=== PATIENT | male | born 1955 | race Caucasian/White ===

== ENCOUNTER → 2024-06-21 07:19 | Day surgery (SDC) | payer MEDICARE, BC, SELFPAY ==
[2024-06-21 08:28] LABS: Glucose - Point of Care 154 mg/dl (70-99)
== END ==
LOC: GI 07:19
PROVIDERS: ATTENDING PHYSICIAN Specialist; FAMILY PHYSICIAN Family Medicine
DX: K57.30 Diverticulosis of large intestine without perforation or abscess without bleeding (principal); Z86.010 Personal history of colon polyps; K63.5 Polyp of colon; R13.10 Dysphagia, unspecified; K22.2 Esophageal obstruction; K31.7 Polyp of stomach and duodenum; K29.50 Unspecified chronic gastritis without bleeding
CPT/HCPCS: 43249; 45385; 43239; 88305; 82962